=== PATIENT | female | born 1995 | race Caucasian/White ===

== ENCOUNTER 2019-06-21 20:15 | Outpatient (CLI) | payer OTHER ==
[~2019-06-21] VITALS: Ht 157.5 cm; Wt 98.4 kg
--- NOTE | 2019-06-21 20:30 | NUR ---
Pt placed on EFM, no UC noted, doppler 150's unable to trace due to gestation. VS obtained. SVE closed thick and no obvious sign of increase discharge. Urine sent to lab.
[2019-06-21 20:45] VITALS: BP 116/55
[2019-06-21 20:50] LABS: BILIRUBIN,URINE NEGATIVE (NEGATIVE); CLARITY,URINE CLEAR; COLOR,URINE YELLOW; GLUCOSE, URINE (UA) NEGATIVE (NEGATIVE); KETONES,URINE NEGATIVE (NEGATIVE); LEUKOCYTE ESTERASE ,URINE 1+ (NEGATIVE); NITRITE,URINE NEGATIVE (NEGATIVE); PH,URINE 6 (5-9); PROTEIN,URINE NEGATIVE (NEGATIVE); UROBILINOGEN,URINE 4 MG/DL (NORMAL)
[2019-06-21 20:55] LABS: BACTERIA,URINE TRACE /HPF; CALCIUM OXALATE CRYSTALS,UR MODERATE /LPF; WBC,URINE 0-2 /HPF
[2019-06-21 21:04] VITALS: BP 116/55
--- NOTE | 2019-06-21 21:07 | NUR ---
Pt discharged and ambulated to private vehicle
--- NOTE | 2019-06-25 18:36 | Physician Query-Final Dx ---
[facility] 06/25/19 1836: Clinic Account Progress/Dx Physician Query: Please give diagnosis Need dx and weeks of gestation Date of Service Jun 21, 2019 at 20:15 PRICILA ZARATE DO 07/16/19 0721: Clinic Account Progress/Dx DIAGNOSIS: Diagnosis 23week gestation vaginal discharge [facility] Jun 25, 2019 18:36 PRICILA ZARATE DO Jul 16, 2019 07:21
== END 2019-06-21 21:07 | disposition home or self-care (01) ==
LOC: WSo 20:15 → LDRP 20:16 → WSo 21:07
PROVIDERS: ATTEND Family Medicine
DX: O99.89 Other specified diseases and conditions complicating pregnancy, childbirth and the puerperium (principal); N89.8 Other specified noninflammatory disorders of vagina; Z3A.23 23 weeks gestation of pregnancy
CPT/HCPCS: 81000; 99213